=== PATIENT | female | born 1955 | race Caucasian/White ===

== ENCOUNTER 2019-12-16 19:48 | Emergency (ER) | payer BC ==
--- OUTSIDE RECORDS SUMMARY | 2019-12-16 20:07 | XMS REPORT ---
:1955 Author Organization [facility] Care Team Providers Name Role Phone Geetha Montes Primary Care Physician Unavailable Allergies, Adverse Reactions, Alerts Allergy Code CodeSystem Reaction Severity Criticality Status Start Substance Date Moderate Medications Medication Medication Medication Start Stop Route Dose Status Fill Code CodeSystem Date Date Instructions RxNorm Relevant diagnostic tests/laboratory data Narrative No Information Procedures Procedure Code CodeSystem Target Date of Status Service Device Device Device Name Site Procedure Delivery Code Name UID Location SNOMED-CT () 2019-05-26 complete Mental d Health- [address], [id number] Psychiatric [id number] SNOMED-CT () 2019-07-20 complete Mental diagnostic 85 d Health- evaluation [address], [id number] [phone] SNOMED-CT () 2019-07-28 complete Mental d Health- [address], [id number] [id number] Psychotherap [id number] SNOMED-CT () 2019-08-24 complete Mental y, 45 04 d Health- minutes with [address], [id number] [id number] Psychotherap [id number] SNOMED-CT () 2019-09-27 complete Mental y, 45 04 d Health- minutes with [address], [id number] [phone] Psychotherap [id number] SNOMED-CT () 2019-09-21 complete Mental y, 45 04 d Health- minutes with [address], [id number] [phone] Psychotherap [id number] SNOMED-CT () 2019-07-13 complete Mental y, 45 04 d Health- minutes with [address], [place], [place], [id number] [phone] Psychotherap [id number] SNOMED-CT () 2019-08-03 complete Mental y, 45 04 d Health- minutes with [facility] patient [address], [phone] [phone] Psychotherap [id number] SNOMED-CT () 2019-06-07 complete Mental y, 45 04 d Health- minutes with [facility] patient [address], [id number] [phone] Psychotherap [id number] SNOMED-CT () 2019-07-18 complete Mental y, 45 04 d Health- minutes with [facility] patient [address], [id number] [phone] Office [place] [id number] SNOMED-CT () 2019-08-03 complete Mental other 7 d Health- outpatient [place] visit for [address], [facility], established [id number] patient, [phone] which requires at least 2 of these 3 cho components: An expanded problem focused history; An expanded problem focused examination; Medical decision making of [facility] Office or [id number] SNOMED-CT () 2019-09-21 complete Mental other 6 d Health- outpatient [place] visit for [address], [facility], established [id number] patient, [phone] which requires at least 2 of these 3 cho components: A problem focused history; A problem focused examination; [place] medical decision making. Counselin Encounters/Encounter Diagnoses Encounter Name Encounter Diagnosis Diagnosis Diagnosis Date of Service Code Code Name CodeSystem Diagnosis Delivery Location Psychotherapy - 91569 SNOMED-CT 2019-10-18 Behavioral Individual [facility] , , , Vital Signs No Information Social History Element Description Description Start End Code CodeSystem AdditionalInfo Date Date SexAssignedAtBirth Female 0 F AdministrativeGender 06-20 Hospital Discharge Instructions Reason For Referral Medical Equipment FDA Assessments
--- OUTSIDE RECORDS SUMMARY | 2019-12-16 20:07 | XMS REPORT ---
:1955 Author Organization [facility] Care Team Providers Name Role Phone Geetha Montes Primary Care Physician Unavailable Allergies, Adverse Reactions, Alerts Allergy Code CodeSystem Reaction Severity Criticality Status Start Substance Date Moderate Medications Medication Medication Medication Start Stop Route Dose Status Fill Code CodeSystem Date Date Instructions citalopram 20030411 RxNorm 2018-10- oral 20 mg 1 completed 1 and 1/2 0-31 10-31 and 1/2 tablet once tablet a day for 30 once a day(s) day citalopram 20030411 RxNorm 2018-10- oral 20 mg 1 completed 1 tablet 0-23 10-31 tablet once a day once a for 30 day(s) day Thera-Tabs M RxNorm 2018-10- oral 27 mg completed 1 tablet 0-23 11-22 iron-400 once a day mcg 1 for 30 day(s) tablet once a day mirtazapine 142832 RxNorm 2019- oral 7.5 mg 1 active Take 1 tablet 02-13 tablet at bedtime at for 30 day(s) bedtime citalopram [id number] RxNorm 2018-10- oral 20 mg 1 completed 1 tablet 0-31 01-29 tablet once a day once a for 30 day(s) day Relevant diagnostic tests/laboratory data Narrative No Information Procedures Procedure Code CodeSystem Target Date of Status Service Device Device Device Name Site Procedure Delivery Code Name UID Location SNOMED-CT () 2019-05-26 complete Mental d Health- [address], [id number] [phone] Psychotherap [id number] SNOMED-CT () 2019-06-07 complete Mental y, 45 04 d Health- [facility] with [address], [phone] Psychotherap [id number] SNOMED-CT () 2019-07-18 complete Mental y, 45 04 d Health- minutes with [facility] patient [address], [id number] [phone] Psychiatric [id number] SNOMED-CT () 2019-07-20 complete Mental diagnostic 85 d Health- evaluation [place] with medical [address], [id number] [phone] Psychotherap [id number] SNOMED-CT () 2019-07-13 complete Mental y, 45 04 d Health- minutes with [facility] patient [address], [id number] [phone] Psychotherap [id number] SNOMED-CT () 2019-08-03 complete Mental y, 45 04 d Health- minutes with [facility] patient [address], [phone] Office or [id number] SNOMED-CT () 2019-08-03 complete Mental other 7 d Health- outpatient [place] visit for [address], of an [place], established [phone] patient, [phone] which requires at least 2 of these 3 cho components: An expanded problem focused history; An expanded problem focused examination; Medical decision making of low SNOMED-CT () 2019-07-28 complete Mental d Health- [place] [address], [id number] [phone] Psychotherap [id number] SNOMED-CT () 2019-08-24 complete Mental y, 45 04 d Health- minutes with [place] patient [address], [id number] [phone] Psychotherap [id number] SNOMED-CT () 2019-09-27 complete Mental y, 45 04 d Health- minutes with [place] patient [address], [id number] [phone] Psychotherap [id number] SNOMED-CT () 2019-09-21 complete Mental y, 45 04 d Health- minutes with [facility] patient [address], [phone] [phone] Office or [id number] SNOMED-CT () 2019-09-21 complete Mental other 6 d Health- outpatient [place] visit for [address], established [id number] patient, [phone] which requires at least 2 of these 3 cho components: A problem focused history; A problem focused examination; [place] medical decision making. Counselin Psychotherap [id number] SNOMED-CT () 2019-10-18 complete Mental y, 45 04 d Health- minutes with [facility] patient [address], [id number] [phone] Psychotherap [id number] SNOMED-CT () 2019-11-01 complete Mental y, 45 04 d Health- minutes with [facility] patient [address], [phone] [phone] SNOMED-CT () 2019-11-17 complete Mental d Health- [place] [address], [phone] Office or [id number] SNOMED-CT () 2019-09-21 complete Mental other 6 d Health- outpatient [facility] visit for [address], [facility] [phone] patient, [phone] which requires at least 2 of these 3 cho components: A problem focused history; A problem focused examination; [place] medical decision making. Counselin Encounters/Encounter Diagnoses Encounter Name Encounter Diagnosis Diagnosis Diagnosis Date of Service Code Code Name CodeSystem Diagnosis Delivery Location Psychotherapy - 43380 SNOMED-CT 2019-11-17 Behavioral Individual [facility] [address] [place] [address], [phone] Vital Signs No Information Social History Element Description Description Start End Code CodeSystem AdditionalInfo Date Date SexAssignedAtBirth Female 1954-0 F AdministrativeGender 06-20 Hospital Discharge Instructions Reason For Referral Medical Equipment FDA Assessments
--- OUTSIDE RECORDS SUMMARY | 2019-12-16 20:07 | XMS REPORT ---
:1955 Author Organization [facility] Care Team Providers Name Role Phone [...] Site Procedure Delivery Code Name UID Location Psychotherap [id number] SNOMED-CT () 2019-08-24 complete Mental y, 45 04 d Health- minutes with [address], [phone] [phone] Psychotherap 340885 SNOMED-CT () 2019-09-27 complete Mental y, 45 04 d Health- minutes with [address], [phone] [phone] Psychotherap [id number] SNOMED-CT () 2019-09-21 complete Mental y, 45 04 d Health- minutes with [address], [id number] [phone] Psychotherap [id number] SNOMED-CT () 2019-07-13 complete Mental y, 45 04 d Health- minutes with [address], [phone] [phone] Psychotherap 327922 SNOMED-CT () 2019-08-03 complete Mental y, 45 04 d Health- minutes with [address], [id number] [phone] Psychotherap 844324 SNOMED-CT () 2019-06-07 complete Mental y, 45 04 d Health- minutes with [address], [id number] [phone] Psychotherap [id number] SNOMED-CT () 2019-07-18 complete Mental y, 45 04 d Health- minutes with [facility] patient [address], [id number] [phone] Psychotherap 955354 SNOMED-CT () 2019-10-18 complete Mental y, 45 04 d Health- minutes with [facility] patient [address], [id number] [phone] Psychiatric [id number] SNOMED-CT () 2019-07-20 complete Mental diagnostic 85 d Health- evaluation [facility] with [facility] services [address] [place] [address], [phone] Office or [id number] SNOMED-CT () 2019-08-03 complete Mental other 7 d Health- outpatient [place] visit for [address], [facility], established [id number] patient, [phone] which requires at least 2 of these 3 cho components: An expanded problem focused history; An expanded problem focused examination; Medical decision making of [facility] Office or [id number] SNOMED-CT () 2019-09-21 complete Mental other 6 d Health- outpatient [place] visit for [address], [facility], established [phone] patient, [phone] which requires at least 2 of these 3 cho components: A problem focused history; A problem focused examination; [place] medical decision making. Counselin SNOMED-CT () 2019-07-28 complete Mental d Health- [address], [phone] SNOMED-CT () 2019-05-26 complete Mental d Health- [address], [phone] Encounters/Encounter Diagnoses Encounter Name Encounter Diagnosis Diagnosis Diagnosis Date of Service Code Code Name CodeSystem Diagnosis Delivery Location Psychotherapy - 99381 SNOMED-CT 2019-10-18 Behavioral Individual [facility] [address] [place] [address], [phone] Vital Signs No Information Social History Element Description Description Start End Code CodeSystem AdditionalInfo Date Date SexAssignedAtBirth Female 1955-0 F AdministrativeGender 06-20 Hospital Discharge Instructions Reason For Referral Medical Equipment FDA Assessments
--- NOTE | 2019-12-16 22:38 | ED ---
Influenza-Like Illness - HPI Summary HPI Summary: 64-year-old female presents to the emergency department today with a chief complaint of nonproductive cough for the last 4 days. Patient states she has no chest pain, shortness of breath, fever. Patient came into the emergency department today as she was concerned for possible coronavirus for the flu. Patient denies recent travel outside of the [facility] states in the last 2 weeks or exposure to those with influenza or coronavirus. Patient otherwise feels well and denies fever, chest pain, abdominal pain and urination, nausea, vomiting, diarrhea. Patient denies starting any new medications. Patient is nontoxic in no acute distress. - History of Current Complaint Chief Complaint: EDGeneral Time Seen by Provider: 12/16/19 22:29 Hx Obtained From: Patient Onset/Duration: Gradual Onset Severity: Mild Associated Signs & Symptoms: Fever, Cough Related Hx: Possible Flu/Infectious Exposure - Allergy/Home Medications Allergies/Adverse Reactions: Allergies Allergy/AdvReac Type Severity Reaction Status Date / Time No Known Allergies Allergy Verified 10/06/17 09:12 Home Medications: Home Medications Citalopram TAB* [Celexa TAB*] 20 mg PO QAM 12/30/12 [History Confirmed 12/16/19] Anucort-Hc OK 07/02/15 [History Confirmed 07/02/15] PMH/Surg Hx/FS Hx/Imm Hx Endocrine/Hematology History: Denies: Hx Diabetes Cardiovascular History: Denies: Hx Hypertension, Hx Pacemaker/ICD History: Denies: Hx Renal Disease Sensory History: Reports: Hx Contacts or Glasses - READING Denies: Hx Hearing Aid Opthamlomology History: Reports: Hx Contacts or Glasses - READING Neurological History: Reports: Hx Migraine - 4 X PER YEAR- TREATS COMPAZINE AND ADVIL Psychiatric History: Reports: Hx Depression - ON MEDICATION Denies: Hx Panic Disorder - Cancer History Cancer Type, Location and Year: BREAST CA 05/23 - Surgical History Surgery Procedure, Year, and Place: TONSILECTOMY, BILATERAL MASTECTOMIES 4 YRS AGO(LEFT BREAST) Hx Anesthesia Reactions: Yes - 05/2012-VIOLENT N/V, HARD TO WAKE UP - Immunization History Date of Influenza Vaccine: Infectious Disease History: No Infectious Disease History: Denies: Traveled Outside the [place] in Last 30 Days - Social History Alcohol Use: Daily Alcohol Amount: glass a wine Substance Use Type: Reports: None Smoking Status (MU): Never Smoked Tobacco Review of Systems Positive: Fever Eyes: Negative ENT: Negative Cardiovascular: Negative Positive: Cough. Negative: Shortness Of Breath Gastrointestinal: Negative Genitourinary: Negative Musculoskeletal: Negative Skin: Negative Neurological/Mental Status: Negative Psychological: Normal All Other Systems Reviewed And Are Negative: Yes Physical Exam - Summary Physical Exam Summary: Patient is in no acute distress with no evidence of accessory muscle use or personal breathing. Patient speaks in full and broken sentences. Patient is afebrile and not hypoxic or cyanotic. Triage Information Reviewed: Yes Vital Signs On Initial Exam: Initial Vitals Temp Pulse Resp BP Pulse Ox 100.6 F 71 20 137/94 97 12/16/19 19:55 12/16/19 19:55 12/16/19 19:55 12/16/19 19:55 12/16/19 19:55 Vital Signs Reviewed: Yes Appearance: Positive: Well-Appearing, No Pain Distress, Well-Nourished Skin: Positive: Warm, Skin Color Reflects Adequate Perfusion Eyes: Positive: EOMI, PARKER ENT: Positive: Hearing grossly normal Respiratory/Lung Sounds: Positive: Clear to Auscultation, Breath Sounds Present Cardiovascular: Positive: RRR, S1, S2 Abdomen Description: Positive: Nontender, Soft Bowel Sounds: Positive: Present Musculoskeletal: Positive: Strength/ROM Intact Neurological: Positive: Sensory/Motor Intact, Alert, Oriented to Person Place, Time, Normal Gait, Facial Symmetry, Speech Normal Psychiatric: Positive: Normal, Affect/Mood Appropriate AVPU Assessment: Alert Procedures - Sedation Patient Received Moderate/Deep Sedation with Procedure: No Diagnostics - Vital Signs Vital Signs Temp Pulse Resp BP Pulse Ox 12/16/19 19:55 100.6 F 71 20 137/94 97 - Laboratory Lab Statement: Any lab studies that have been ordered have been reviewed, and results considered in the medical decision making process. Flu Symptom Course/Dx - Course Course Of Treatment: Patient was evaluated in the emergency department today for cough. Patient afebrile. Patient given Tylenol for fever. Insulin serology returned positive for influenza A. Patient outside window for Tamiflu treatment. Patient discharged to outpatient follow-up. - Diagnoses Differential Diagnosis/HQI/PQRI: Positive: Bronchitis, Influenza, Pneumonia, Upper Respiratory Infection Provider Diagnoses: Influenza A Discharge ED - Sign-Out/Discharge Documenting (check all that apply): Patient Departure - Discharge Plan Condition: Stable Disposition: HOME Patient Education Materials: Influenza (ED) Referrals: Joyce Macario NP [Primary Care Provider] - 3 Days Additional Instructions: You were seen in the emergency department today and diagnosed with influenza. This is an upper respiratory virus which causes cough, muscle aches, fever, nausea, trouble breathing. Viruses are self-limiting and will go away on their own. Be sure to stay hydrated and rest. You may take tgfk-[id number] decongestants as needed for your symptoms as well as NyQuil at night to improve sleep. Take Tylenol every 6 hours as needed for fever. Please see your primary care physician in 5 days for further evaluation and management. Please do not return to work or school until 24 hours after your fever breaks. Please return to the emergency department immediately if you develop any new or worsening symptoms. - Billing Disposition and Condition Condition: STABLE Disposition: Home
[2019-12-16 22:50] LABS: Influenza A Molecular POSITIVE (Negative)
[2019-12-16] MEDS ORDERED: Acetaminophen TAB* 325 MG PO ONE (23:02)
[2019-12-16 23:27] VITALS: BP 127/86
== END 2019-12-16 23:26 | disposition home or self-care (01) ==
LOC: ED 19:48
DX: J10.1 Influenza due to other identified influenza virus with other respiratory manifestations (principal); R05 Cough; Z85.3 Personal history of malignant neoplasm of breast; F41.9 Anxiety disorder, unspecified
CPT/HCPCS: 99282

== ENCOUNTER 2019-12-17 17:06 | Emergency (ER) | payer BC ==
[2019-12-17] MEDS ORDERED: Acetaminophen TAB* 325 MG PO ONE (17:13)
--- NOTE | 2019-12-17 17:27 | ED ---
Influenza-Like Illness - History of Current Complaint Chief Complaint: EDFluSymptoms Time Seen by Provider: 12/17/19 17:12 Hx Obtained From: Patient - pt comes to the ER with a positive diagnosis of influenza yesterday but opted to not be on the Tamiflu. Pt states she has been with high fevers all of today and feeling confused, though the patient transported herself here. pt is febrile in triage and hasn't taken anything since the morning. Onset/Duration: Gradual Onset Severity: Moderate Associated Signs & Symptoms: Fever - Allergy/Home Medications Allergies/Adverse Reactions: Allergies Allergy/AdvReac Type Severity Reaction Status Date / Time No Known Allergies Allergy Verified 12/17/19 17:11 Home Medications: Home Medications Citalopram TAB* [Celexa TAB*] 20 mg PO QAM 12/30/12 [History Confirmed 12/17/19] PMH/Surg Hx/FS Hx/Imm Hx Endocrine/Hematology History: Denies: Hx Diabetes Cardiovascular History: Denies: Hx Hypertension, Hx Pacemaker/ICD History: Denies: Hx Renal Disease Sensory History: Reports: Hx Contacts or Glasses - READING Denies: Hx Hearing Aid Opthamlomology History: Reports: Hx Contacts or Glasses - READING Neurological History: Reports: Hx Migraine - 4 X PER YEAR- TREATS COMPAZINE AND ADVIL Psychiatric History: Reports: Hx Depression - ON MEDICATION Denies: Hx Panic Disorder - Cancer History Cancer Type, Location and Year: BREAST CA 05/23 - Surgical History Surgery Procedure, Year, and Place: TONSILECTOMY, BILATERAL MASTECTOMIES 4 YRS AGO(LEFT BREAST) Hx Anesthesia Reactions: Yes - 05/2012-VIOLENT N/V, HARD TO WAKE UP - Immunization History Date of Influenza Vaccine: Infectious Disease History: No Infectious Disease History: Denies: Traveled Outside the [place] in Last 30 Days - Family History Known Family History: Positive: Other - colon cancer - Social History Alcohol Use: Daily Alcohol Amount: glass a wine Substance Use Type: Reports: None Hx Tobacco Use: No Smoking Status (MU): Never Smoked Tobacco Review of Systems Positive: Fever Negative: Chest Pain Negative: Shortness Of Breath Negative: Abdominal Pain, Vomiting, Diarrhea Positive: no symptoms reported Skin: Negative Negative: Rash Neurological/Mental Status: Other - mild confusion Negative: Headache Psychological: Normal All Other Systems Reviewed And Are Negative: Yes Physical Exam Triage Information Reviewed: Yes Vital Signs On Initial Exam: Initial Vitals Temp Pulse Resp BP Pulse Ox 101.4 F 83 16 182/90 98 12/17/19 17:06 12/17/19 17:06 12/17/19 17:06 12/17/19 17:06 12/17/19 17:06 Vital Signs Reviewed: Yes Appearance: Positive: Well-Appearing, No Pain Distress. Negative: Ill-Appearing , Obese Skin: Positive: Warm, Skin Color Reflects Adequate Perfusion Head/Face: Positive: Normal Head/Face Inspection Eyes: Positive: Normal, EOMI, PARKER, Other: - No nystagmus ENT: Positive: Normal ENT inspection, Pharynx normal. Negative: Pharyngeal erythema Neck: Positive: Supple. Negative: Nuchal Rigidity Respiratory/Lung Sounds: Positive: Clear to Auscultation Cardiovascular: Positive: Normal Abdomen Description: Positive: Nontender Musculoskeletal: Positive: Normal Neurological: Positive: Normal, Sensory/Motor Intact, Alert, Oriented to Person Place, Time, CN Intact II-III, Normal Gait, Finger to Nose, Speech Normal. Negative: Abnormal Gait, Cerebellar Dysfunction, Disoriented, Facial Droop, Focal Deficit @, Slurred Speech, Ataxic Gait Psychiatric: Positive: Normal AVPU Assessment: Alert Procedures - Sedation Patient Received Moderate/Deep Sedation with Procedure: No Diagnostics - Vital Signs Vital Signs Temp Pulse Resp BP Pulse Ox 12/17/19 17:06 101.4 F 83 16 182/90 98 - Laboratory Lab Statement: Any lab studies that have been ordered have been reviewed, and results considered in the medical decision making process. Flu Symptom Course/Dx - Course Course Of Treatment: Patient appears well, nontoxic, no focal neurologic deficits, no signs of meningitis. Patient alert and oriented in the ED, normal gait. Mild confusion as described by patient at home likely secondary to fever/ viral syndrome. Patient diagnosed yesterday with influenza A as noted in the EMR. Patient given Tylenol, PO fluids, reassessed, feels well for discharge home. Has PCP for follow-up. Patient inadvertently left prior to receiving d/ c paperwork. - Diagnoses Provider Diagnoses: Influenza A, Fever Discharge ED - Sign-Out/Discharge Documenting (check all that apply): Patient Departure - Discharge Plan Condition: Stable Disposition: HOME Referrals: Joyce Macario NP [Primary Care Provider] - - Billing Disposition and Condition Condition: STABLE Disposition: Home - Attestation Statements Document Initiated by Scribe: Yes Documenting Scribe: Karina Mcwilliams Provider For Whom Scribe is Documenting (Include Credential): Clinton Mason DO Scribe Attestation: Karina Patterson, scribed for Clinton Mason DO on 12/17/19 at 2045. Scribe Documentation Reviewed: Yes Provider Attestation: The documentation as recorded by the scribeKarina accurately reflects the service I personally performed and the decisions made by Clinton dugan DO Status of Scribe Document: Viewed
[2019-12-17 19:27] VITALS: BP 117/62
== END 2019-12-17 19:25 | disposition home or self-care (01) ==
LOC: ED 17:06
DX: J10.1 Influenza due to other identified influenza virus with other respiratory manifestations (principal); R50.9 Fever, unspecified; F32.9 Major depressive disorder, single episode, unspecified
CPT/HCPCS: 99282; A9270-GY

== ENCOUNTER 2020-09-15 11:39 | Inpatient (IN) ==
[2020-09-15 12:33] LABS: ABS Basophils 0.1 10^3/ul (0-0.2); ABS Lymphocytes 1.5 10^3/ul (1.0-4.8); ABS Monocytes 0.5 10^3/ul (0-0.8); ABS Neutrophils 7.2 10^3/ul (1.5-7.7); Eosinophil % 0.4 %; Hematocrit 42 % (35-47); Hemoglobin 14.6 g/dL (12.0-16.0); Lymphocyte % 16.1 %; Mean Corpuscular HGB Conc 34 g/dL (31-36); Mean Corpuscular Hemoglobin 31 pg (27-31); Mean Corpuscular Volume 89 fL (80-97); Mean Platelet Volume 8.5 fL (7.4-10.4); Nucleated Red Blood Cells % 0.1; Platelet Count 298 10^3/uL (150-450); Red Blood Count 4.78 10^6 /uL (3.70-4.87); Red Cell Distribution Width 14 % (10-15); White Blood Count 9.3 10^3/uL (3.5-10.8)
[2020-09-15 12:54] LABS: Albumin 4.2 g/dL (3.2-5.2); Anion Gap 9 mmol/L (2-11); CO2 Carbon Dioxide 23 mmol/L (22-32); Calcium 9.2 mg/dL (8.6-10.3); Chloride 104 mmol/L (101-111); Potassium 3.9 mmol/L (3.5-5.0); Sodium 136 mmol/L (135-145)
[2020-09-15 12:57] LABS: Acetaminophen < 15 mcg/mL; Alcohol, S < 10 mg/dL (<10); Salicylate < 2.50 mg/dL (<30)
[2020-09-15 13:00] LABS: ALT 52 U/L (7-52); AST 37 U/L (13-39); Albumin/Globulin Ratio 1.3 (1-3); Alkaline Phosphatase 95 U/L (34-104); BUN/Creatinine Ratio 15.1 (8-20); Blood Urea Nitrogen 13 mg/dL (6-24); EGFR African American 80.6 (>60); EGFR Non-African American 66.6 (>60); Globulin 3.2 g/dL (2-4); Glucose 95 mg/dL (70-100); Total Protein 7.4 g/dL (6.4-8.9)
[2020-09-15 13:40] LABS: Urine Appearance Cloudy; Urine Bilirubin Negative (Negative); Urine Blood 1+ (Negative); Urine Color Yellow; Urine Glucose Negative (Negative); Urine Ketones Trace (Negative); Urine Nitrite Negative (Negative); Urine Protein Negative (Negative); Urine Specific Gravity 1.006 (1.010-1.030); Urine Urobilinogen Negative (Negative)
[2020-09-15 13:42] LABS: Urine Bacteria Absent (Absent); Urine Red Blood Cell Trace(0-2/hpf) (Absent); Urine Squamous Epithelial Cell Present (Absent); Urine White Blood Cell Trace(0-5/hpf) (Absent)
[2020-09-15 13:59] LABS: Urine Benzodiazepine Screen None Detected (None Detect); Urine Cannabinoids Screen None Detected (None Detect); Urine Opiates Screen None Detected (None Detect)
[2020-09-17] MEDS ORDERED: Al Hydrox/Mg Hydrox/Simet LIQ 30 ML UDC PO PRN (01:08)
[2020-09-17] MEDS: Vitamin THERAPEUTIC TAB PO SCH (09:09)
[2020-09-18] MEDS: Vitamin THERAPEUTIC TAB PO SCH (09:03)
[2020-09-19 08:31] LABS: HDL Cholesterol 55.2 mg/dL
[2020-09-19] MEDS: Vitamin THERAPEUTIC TAB PO SCH (09:31)
[2020-09-20] MEDS: CMCS:Vortioxetine 10 mg TAB (NF) PO SCH (09:41)
[2020-09-20] MEDS: Vitamin THERAPEUTIC TAB PO SCH (09:41)
[2020-09-21] MEDS: Vitamin THERAPEUTIC TAB PO SCH (07:33)
[2020-09-21] MEDS: CMCS:Vortioxetine 10 mg TAB (NF) PO SCH (07:34)
[2020-09-22] MEDS: Vitamin THERAPEUTIC TAB PO SCH (07:46)
[2020-09-22] MEDS: CMCS:Vortioxetine 10 mg TAB (NF) PO SCH (07:46)
[2020-09-23] MEDS: CMCS:Vortioxetine 10 mg TAB (NF) PO SCH (07:34)
[2020-09-23] MEDS: Vitamin THERAPEUTIC TAB PO SCH (07:34)
[2020-09-24 08:20] VITALS: BP 139/73
[2020-09-24] MEDS: CMCS:Vortioxetine 10 mg TAB (NF) PO SCH (09:08)
[2020-09-24] MEDS: Vitamin THERAPEUTIC TAB PO SCH (09:09)
== END 2020-09-24 14:10 | disposition home health service (06) | DRG 885 ==
LOC: ED 11:39 → BSU 09-16 23:53
PROVIDERS: ADMIT Psychiatry & Neurology Psychiatry; ATTEND Psychiatry & Neurology Psychiatry